=== PATIENT | male | born 1985 | race Caucasian/White ===

== ENCOUNTER 2018-05-14 12:41 | Emergency (ER) | payer MEDICAID ==
[~2018-05-14] VITALS: Ht 182.9 cm; Wt 94.3 kg
[2018-05-14 12:52] VITALS: BP 123/78
[2018-05-14] MEDS ORDERED: IBUPROFEN 600 MG TABLET PO ONE ×2 (13:00→13:02)
== END 2018-05-14 13:51 | disposition home or self-care (01) ==
LOC: ER 12:45
DX: S61.402A Unspecified open wound of left hand, initial encounter (principal); Z60.2 Problems related to living alone; V49.49XA Driver injured in collision with other motor vehicles in traffic accident, initial encounter; Y93.89 Activity, other specified; Y92.410 Unspecified street and highway as the place of occurrence of the external cause; Y99.8 Other external cause status
CPT/HCPCS: 73130; 99283; A4606; Z7610